=== PATIENT | female | born 1970 | race Caucasian/White ===

== ENCOUNTER 2018-04-01 01:41 | Emergency (ER) | payer BC ==
[2018-04-01] MEDS ORDERED: DIPHENHYDRAMINE 25 MG TAB/CAP ONE (02:09)
[2018-04-01] MEDS ORDERED: predniSONE 20 MG TAB ONE (02:10)
[2018-04-01] MEDS ORDERED: EPINEPHRINE/PF 1 MG/ML AMP ONE (02:10)
--- NOTE | 2018-04-01 02:55 | EDPHYS ---
Physician Documentation [facility] Name: Vannesa Nieves Age: 47 yrs Sex: Female : 1970 Arrival Date: 04/01/2018 Time: 01:42 Bed 23 Private MD: Eliot Montero V ED Physician Shade Galeano HPI: 04/01 07:24 This 47 yrs old Female presents to ER via Ambulatory with complaints of wa Allergic Reaction. 07:24 The patient presents with itching, rash, that is diffuse. Onset: The symptoms/episode wa began/occurred today. Associated signs and symptoms: Pertinent positives: rash, swelling, Pertinent negatives: chest pain, shortness of breath. Possible causes: began 2 hours after taking gabapentin. At home the patient or guardian has treated the symptoms with nothing. Severity of symptoms: At their worst the symptoms were moderate in the emergency department the symptoms are unchanged. The patient has not experienced similar symptoms in the past. The patient has not recently seen a physician. 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 - Social history:: Smoking status: Patient/guardian denies using tobacco, Patient uses alcohol, occasionally. - Ebola Screening: : No symptoms or risks identified at this time. - Family history:: not pertinent. - Hospitalizations: : No recent hospitalization is reported. ROS: 07:25 Constitutional: Negative for fever, chills, and weight loss, Eyes: Negative for injury, wa pain, redness, and discharge, ENT: Negative for injury, pain, and discharge, Neck: Negative for injury, pain, and swelling, Cardiovascular: Negative for chest pain, palpitations, and edema, Respiratory: Negative for shortness of breath, cough, wheezing, and pleuritic chest pain, Abdomen/GI: Negative for abdominal pain, nausea, vomiting, diarrhea, and constipation, Back: Negative for injury and pain, : Negative for injury, bleeding, discharge, and swelling, MS/Extremity: Negative for injury and deformity, Neuro: Negative for headache, weakness, numbness, tingling, and seizure. 07:25 Skin: Positive for rash, Negative for 07:25 All other systems are negative. Exam: 07:26 Constitutional: This is a well developed, well nourished patient who is awake, alert, wa and in no acute distress. Head/Face: Normocephalic, atraumatic. Eyes: Pupils equal round and reactive to light, extra-ocular motions intact. Lids and lashes normal. Conjunctiva and sclera are non-icteric and not injected. Cornea within normal limits. Periorbital areas with no swelling, redness, or edema. ENT: Nares patent. No nasal discharge, no septal abnormalities noted. Tympanic membranes are normal and external auditory canals are clear. Oropharynx with no redness, swelling, or masses, exudates, or evidence of obstruction, uvula midline. Mucous membranes moist. Neck: Trachea midline, no thyromegaly or masses palpated, and no cervical lymphadenopathy. Supple, full range of motion without nuchal rigidity, or vertebral point tenderness. No Meningismus. Chest/axilla: Normal chest wall appearance and motion. Nontender with no deformity. No lesions are appreciated. Cardiovascular: Regular rate and rhythm with a normal S1 and S2. No gallops, murmurs, or rubs. Normal PMI, no JVD. No pulse deficits. Respiratory: Lungs have equal breath sounds bilaterally, clear to auscultation and percussion. No rales, rhonchi or wheezes noted. No increased work of breathing, no retractions or nasal flaring. Abdomen/GI: Soft, non-tender, with normal bowel sounds. No distension or tympany. No guarding or rebound. No evidence of tenderness throughout. Back: No spinal tenderness. No costovertebral tenderness. Full range of motion. MS/ Extremity: Pulses equal, no cyanosis. Neurovascular intact. Full, normal range of motion. Neuro: Awake and alert, GCS 15, oriented to person, place, time, and situation. Cranial nerves II-XII grossly intact. Motor strength 5/5 in all extremities. Sensory grossly intact. Cerebellar exam normal. Normal gait. Psych: Awake, alert, with orientation to person, place and time. Behavior, mood, and affect are within normal limits. 07:26 Constitutional: The patient appears noted actively scratching self 07:26 Skin: rash can be described as erythematous, urticarial, diffuse. Vital Signs: 01:55 BP 129 / 80; Pulse 76; Resp 18; Temp 97.9(O); Pulse Ox 100% on R/A; Weight 77.11 kg; mg2 Height 5 ft. 1 in. (154.94 cm); Pain 0/10; 02:30 BP 126 / 83; Pulse 80; Resp 18; Pulse Ox 97% ; Pain 0/10; mg2 02:57 BP 122 / 83; Pulse 75; Resp 18; Pulse Ox 97% on R/A; Pain 0/10; mg2 01:55 Body Mass Index 32.12 (77.11 kg, 154.94 cm) mg2 MDM: 01:51 Patient medically screened. wa 07:27 Differential diagnosis: urticaria, reaction to med. will treat sx and reassess. Data wy reviewed: vital signs, nurses notes. Response to treatment: the patient's symptoms have markedly improved after treatment. Administered Medications: 02:17 Drug: predniSONE 40 mg Route: PO; mg2 02:58 Follow up: Response: No adverse reaction; Marked relief of symptoms mg2 02:17 Drug: Benadryl 25 mg Route: PO; mg2 02:58 Follow up: Response: No adverse reaction; Marked relief of symptoms mg2 02:17 Drug: EPINEPHrine 1mg/mL 1:1,000 0.3 ml Route: Sub-Q; Site: right upper arm; mg2 02:58 Follow up: Response: No adverse reaction; Marked relief of symptoms mg2 Disposition: 04/01/18 02:54 Discharged to Home. Impression: Acute Allergic reaction to prescribed medication. - Condition is Stable. - Discharge Instructions: Allergies, [id number]. - Prescriptions for Prednisone 20 mg Oral Tablet - take 2 tablets by ORAL route once daily for 4 days; 8 tablet. - Medication Reconciliation Form, Thank You Letter, Antibiotic Education, Prescription Opioid Use form. - Follow up: Private Physician; When: 1 - 2 days; Reason: Recheck today's complaints. - Problem is new. - Symptoms have improved. - Notes: quit taking gabapentin. take bendryl for itching as discussed. Signatures: Shade Galeano MD MD wa Gardose, Michele, RN RN mg2 Corrections: (The following items were deleted from the chart) 03:03 02:54 04/01/2018 02:54 Discharged to Home. Impression: Acute Allergic reaction to mg2 prescribed medication. Condition is Stable. Forms are Medication Reconciliation Form, Thank You Letter, Antibiotic Education, Prescription Opioid Use. Follow up: Private Physician; When: 1 - 2 days; Reason: Recheck today's complaints. Problem is new. Symptoms have improved. justen
--- NOTE | 2018-04-01 02:55 | ER ---
Nurse's Notes [facility] Name: Vannesa Nieves Age: 47 yrs Sex: Female : 1970 Arrival Date: 04/01/2018 Time: 01:42 Bed 23 Private MD: Eliot Montero V Diagnosis: Acute Allergic reaction to prescribed medication Presentation: 04/01 01:50 Presenting complaint: Patient states: she probably had an allergic reaction from mg2 gabapentin which she took \T\ 1230 noon yesterday after she had root canal last week. started to feel itchy and have rash all over her body \T\ 1700H. also reports to have stomach upset. denies n/v, diarrhea and shortness of breath. Transition of care: patient was not received from another setting of care. Onset: The symptoms/episode began/occurred gradually, at 17:00. Anaphylaxis evaluation, the patient reports or I have noted the following symptoms which indicate a significant risk of anaphylaxis: urticaria. Onset of symptoms was March 31, 2018 at 17:00. Risk Assessment: Do you want to hurt yourself or someone else? Patient reports no desire to harm self or others. Initial Sepsis Screen: Does the patient meet any 2 criteria? No. Patient's initial sepsis screen is negative. Does the patient have a suspected source of infection? No. Patient's initial sepsis screen is negative. Care prior to arrival: None. 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 - Social history:: Smoking status: Patient/guardian denies using tobacco, Patient uses alcohol, occasionally. - Ebola Screening: : No symptoms or risks identified at this time. - Family history:: not pertinent. - Hospitalizations: : No recent hospitalization is reported. Screenin:56 Abuse screen: Denies threats or abuse. Denies injuries from another. Nutritional mg2 screening: No deficits noted. Tuberculosis screening: No symptoms or risk factors identified. Fall Risk None identified. Assessment: 01:57 General: Appears in no apparent distress. comfortable, Behavior is calm, cooperative. mg2 Pain: Denies pain. Neuro: Level of Consciousness is awake, alert, obeys commands, Oriented to person, place, time, situation. Cardiovascular: Capillary refill < 3 seconds Patient's skin is warm and dry. Respiratory: Airway is patent Respiratory effort is even, unlabored, Respiratory pattern is regular, symmetrical, Breath sounds are clear bilaterally. GI: Reports lower abdominal pain. : No signs and/or symptoms were reported regarding the genitourinary system. EENT: No signs and/or symptoms were reported regarding the EENT system. Derm: Rash noted that is itchy, red. Musculoskeletal: Circulation, motion, and sensation intact. Vital Signs: 01:55 BP 129 / 80; Pulse 76; Resp 18; Temp 97.9(O); Pulse Ox 100% on R/A; Weight 77.11 kg; mg2 Height 5 ft. 1 in. (154.94 cm); Pain 0/10; 02:30 BP 126 / 83; Pulse 80; Resp 18; Pulse Ox 97% ; Pain 0/10; mg2 02:57 BP 122 / 83; Pulse 75; Resp 18; Pulse Ox 97% on R/A; Pain 0/10; mg2 01:55 Body Mass Index 32.12 (77.11 kg, 154.94 cm) mg2 ED Course: 01:42 Patient arrived in ED. ds1 01:42 Eliot Montero MD is Private Physician. ds1 01:50 Myles Mac RN is Primary Nurse. mg2 01:51 Shade Galeano MD is Attending Physician. wa 01:54 Triage completed. mg2 01:56 Arm band placed on right wrist. mg2 01:58 Patient has correct armband on for positive identification. Bed in low position. Side mg2 rails up X 1. Door closed. 02:31 phototypesetting equipment monitor on. Pulse ox on. NIBP on. mg2 03:02 No provider procedures requiring assistance completed. Patient did not have IV access mg2 during this emergency room visit. Administered Medications: 02:17 Drug: predniSONE 40 mg Route: PO; mg2 02:58 Follow up: Response: No adverse reaction; Marked relief of symptoms mg2 02:17 Drug: Benadryl 25 mg Route: PO; mg2 02:58 Follow up: Response: No adverse reaction; Marked relief of symptoms mg2 02:17 Drug: EPINEPHrine 1mg/mL 1:1,000 0.3 ml Route: Sub-Q; Site: right upper arm; mg2 02:58 Follow up: Response: No adverse reaction; Marked relief of symptoms mg2 Outcome: 02:54 Discharge ordered by . justen 03:02 Discharged to home ambulatory. mg2 03:02 Condition: good 03:02 Discharge instructions given to patient, family, Instructed on discharge instructions, follow up and referral plans. medication usage, Demonstrated understanding of instructions, follow-up care, medications, Prescriptions given X 1. 03:03 Patient left the ED. mg2 Signatures: Ghislaine Dallas ds1 Shade Galeano MD MD wa Gardose, Michele, RN RN mg2 Corrections: (The following items were deleted from the chart) 01:59 01:50 Presenting complaint: Patient states: she probably had an allergic reaction from mg2 gabapentin which she took \T\ 1230 noon yesterday. started to feel itchy and have rash all over her body \T\ 1700H. also reports to have stomach upset. denies n/v, diarrhea and shortness of breath. mg2
== END 2018-04-01 03:03 | disposition home or self-care (01) ==
LOC: ER 01:41
DX: R21 Rash and other nonspecific skin eruption (principal); T42.6X5A Adverse effect of other antiepileptic and sedative-hypnotic drugs, initial encounter; Y92.9 Unspecified place or not applicable; Z88.0 Allergy status to penicillin
CPT/HCPCS: 96372; 99284; J0171; J7512